=== PATIENT | female | born 1970 | race Caucasian/White ===

== ENCOUNTER → 2016-11-09 | Outpatient (CLI) | payer OTHER ==
[~2016-11-09] VITALS: Ht 172.7 cm; Wt 59.9 kg
[~2016-11-09] MED LIST: BACL20TA PO; HYDR-3816 PO; IBUP-1773 PO; MEDR10TA9 PO; ONDA8TAB13 PO; PANT40TA2 PO; PARO10TA81 PO; SUCR1ORA5 PO; SULF1TAB35 PO
== END ==
LOC: PREOP 05:51
PROVIDERS: ATTEND Surgery Pediatric Surgery
DX: Z01.818 Encounter for other preprocedural examination (principal); R10.12 Left upper quadrant pain; R11.2 Nausea with vomiting, unspecified; R19.7 Diarrhea, unspecified; K92.1 Melena

== ENCOUNTER 2016-11-11 11:01 | Day surgery (SDC) | payer OTHER ==
[~2016-11-11] VITALS: Ht 172.7 cm; Wt 59.9 kg
[~2016-11-11 11:01] MED LIST changes: +NS IV 500 ML 500 ML ONE; -ONDA8TAB13 PO; -PANT40TA2 PO; -SUCR1ORA5 PO
[2016-11-11] MEDS ORDERED: NS IV 500 ML 500 ML IV PRN ×2 (11:30→11:45)
[2016-11-11] MEDS ORDERED: FLUMAZENIL (ROMAZICON) 0.1 MG/ML 5 ML VIAL INJ PRN ×2 (11:30→11:45)
[2016-11-11] MEDS ORDERED: MIDAZOLAM 2 MG/2 ML (VERSED) VIAL IVP PRN (11:30)
[2016-11-11] MEDS ORDERED: fentaNYL INJECTION 100 MCG/2 ML AMP IVP PRN (11:30)
[2016-11-11] MEDS ORDERED: NALOXONE 0.4 MG/ML 1 ML (NARCAN) VIAL IVP PRN ×2 (11:30→11:45)
[2016-11-11] MEDS ORDERED: HURRICAINE EXT TUBE (BENZOCAINE) XX PRN ×2 (11:30→11:45)
[2016-11-11 11:34] VITALS: BP 132/86
--- NOTE | 2016-11-11 11:41 | Conscious Sedation/ASA ---
Conscious Sedation Pre-Proced Time Reviewed: 11:15 ASA Class: 2 Airway Mallampati Classification: (king salmon appropriate class) I. II. III, IV Lungs Heart ASA score ASA 1: a normal healthy patient ASA 2: a patient with a mild systemic disease (mid diabetes, controlled hypertension, obesity ASA 3: a patient with a severe systemic disease that limits activity (angina , COPD, prior Myocardial infarction) ASA 4: a patient with an incapacitating disease that is a constant threat to life (CHF, renal failure) ASA 5: a moribund patient not expected to survive 24 hrs. (ruptured aneurysm) ASA 6: a declared brain patient whose organs are being harvested. For emergent operations, add the letter E after the classification Grade 2 Sedation Plan: Analgesia, Amnesia, Plan communicated to team members, Discussed options with patient/fam, Discussed risks with patient/fam Note The patient is an appropriate candidate to undergo the planned procedure, sedation, and anesthesia. The patient immediately re-assessed prior to indication. RAFAEL MARSH MD Nov 11, 2016 11:41 am
--- NOTE | 2016-11-11 11:42 | Progress Note-Pre Operative ---
Pre-Operative Progress Note H&P Reviewed The H&P was reviewed, patient examined and no changes noted. Date H&P Reviewed: Nov 11, 2016 Time H&P Reviewed: 11:15 Pre-Operative Diagnosis: abdominal pain, rectal bleed RAFAEL MARSH MD Nov 11, 2016 11:42 am
[2016-11-11] MEDS ORDERED: ONDANSETRON 4 MG/2 ML (SDV) Z0FRAN IV PRN (11:45)
[2016-11-11] MEDS ORDERED: morphine INJ 10 MG/ML 1ML (SYR OR VIAL) IV PRN (11:45)
[2016-11-11] MEDS ORDERED: HYDROcodone/APAP 5 MG/325 MG (LORTAB) TAB PO PRN (11:45)
[2016-11-11] MEDS ORDERED: LIDOCAINE JELLY 2% (XYLOCAINE) 5 ML TUBE ONE (12:48)
[2016-11-11] MEDS ORDERED: fentaNYL INJECTION 100 MCG/2 ML AMP ONE ×2 (12:48)
[2016-11-11] MEDS ORDERED: MIDAZOLAM 2 MG/2 ML (VERSED) VIAL ONE ×6 (12:48→13:46)
[2016-11-11] MEDS ORDERED: HURRICAINE EXT TUBE (BENZOCAINE) ONE (12:49)
[2016-11-11] MEDS ORDERED: NS IV 500 ML 500 ML ONE (13:18)
[2016-11-11] MEDS: fentaNYL INJECTION 100 MCG/2 ML AMP IVP PRN ×4 (13:21→13:49)
[2016-11-11] MEDS: MIDAZOLAM 2 MG/2 ML (VERSED) VIAL IVP PRN ×6 (13:22→13:53)
--- NOTE | 2016-11-11 14:12 | Progress Note-Post Operative ---
Post-Operative Progess Note Pre-Operative Diagnosis abdominal pain, rectal bleed Post-Operative Diagnosis reflux esophagitis(class B), small HH(2cm), mild-moderate gastritis. chronic stage 2 ext and int hemorrhoids, HP polyp proximal transverse colon. Post-Op Procedure Note Date of Procedure: Nov 11, 2016 Name of Procedure: EGD with bx. Colonoscopy with bx. Anesthesia Type CS Estimated blood loss (mL): minimal Specimen(s) collected GE jxn, antrum, transverse colon polyp RAFAEL MARSH MD Nov 11, 2016 2:12 pm
[2016-11-11] MEDS ORDERED: PANT40TA2 PO ×2 (14:13)
--- NOTE | 2016-11-11 14:14 | Discharge Inst-Surgical ---
D/C Lap Instructions-KIDO New, Converted, or Re-Newed RX: RX on Chart Follow Up 5 years Activity as tolerated High Fiber Diet 25g or more per day Avoid Alcohol, Caffeine, Spicy [place] and Acid foods. Drink 64 fluid oz or more of fluids per day. Symptoms to Report: Fever over 101 degree F, Nausea/Vomiting If any problems/questions: Contact your physician or go to Emergency Room RAFAEL MARSH MD Nov 11, 2016 2:14 pm
[2016-11-11 14:30] VITALS: BP 102/58
[2016-11-11] MEDS ORDERED: LIDOCAINE JELLY 2% (XYLOCAINE) 5 ML TUBE TOP ONE (14:30)
[2016-11-11 14:55] VITALS: BP 110/65
[2016-11-11 15:00] VITALS: BP 110/65
[2016-11-11] MEDS ORDERED: ONDA8TAB13 PO (19:51)
[2016-11-11] MEDS ORDERED: SUCR1ORA5 PO (19:51)
--- NOTE | 2016-11-12 13:10 | OPERATIVE REPORT ---
PROCEDURE PHYSICIAN: RAFAEL OKEEFE DATE OF PROCEDURE: 11/11/2016 ATTENDING PRIMARY CARE PHYSICIAN: Dr. Elizabeth Marx. PREOPERATIVE DIAGNOSIS: Epigastric pain with random episodes of nausea and vomiting and diarrhea. POSTOPERATIVE DIAGNOSES: 1. Chronic class B reflux esophagitis. 2. Small hiatal hernia, approximately 2 cm in size. 3. Mild to moderate gastritis. 4. Chronic, stage II external and internal hemorrhoids. 5. Small hyperplastic polyp of the proximal transverse colon. PROCEDURE: 1. EGD with biopsy. 2. Colonoscopy with biopsy. SURGEON: Dr. Okeefe. ANESTHESIA: Conscious sedation. ESTIMATED BLOOD LOSS: Minimal. FINDINGS: EGD: 1. Reflux esophagitis, class B. 2. No ulcers or strictures. 3. Small to moderate size hiatal hernia, approximately 2 cm in size. 4. Mild to moderate severity gastritis. 5. The pylorus and duodenum appeared normal. COLONOSCOPY: 1. Chronic, stage II external and internal hemorrhoids, not actively edematous or inflamed and no bleeding. 2. Small hyperplastic polyp of the proximal transverse colon was identified. 3. The remainder colon was normal. DISPOSITION: The patient tolerated the procedure well. Ms. Kecia Suazo is a 46-year-old female who has had left upper quadrant abdominal pain with associated nausea, vomiting and diarrhea. She reports that this has been going on for approximately one year on an intermittent basis. She describes the pain as a stabbing sensation and she will also have her random episodes of nausea and vomiting which is followed by diarrhea. She reports that it does not matter what she eats. She reports that she has had issues with constipation before in the past as well as alternating episodes of diarrhea which may indicate some level of irritable bowel syndrome. She also reports small amounts of self-limited blood in her stools as well. She did have a gallbladder ultrasound, which did not show any gallstones. She does have a history of smoking, however quit regular cigarettes and uses a vapor nicotine right now. She does drink several cups of coffee throughout the day. She also believes that her paternal grandmother did have colon cancer. PROCEDURE: The patient was brought to the endoscopy suite, laid in left lateral decubitus position. After adequate IV pain and sedative medications and conscious sedation anesthesia, the mouthpiece was applied. The endoscope was placed in the mouth, visualizing the pharynx and hypopharyngeal region. Vocal cords, epiglottis and vallecula identified and appeared to be normal. The endoscope was then gently intubated the esophageal opening and the esophagus insufflated. The endoscope was then advanced through the first, second, and 3rd portions of the esophagus. At the level GE junction, a reflux esophagitis, class B identified. There were no ulcers or strictures identified in this region. A biopsy was taken with forceps with visualization of good hemostasis. The endoscope was then easily advanced into stomach and endoscope retroflexed visualizing a small to moderate sized hiatal hernia, approximately 2 cm in size. There was a mild to moderate severity gastritis. There were no ulcers, polyps or any other neoplasms identified. A biopsy was taken of the antrum with forceps with visualization of good hemostasis. The endoscope was then advanced through the pylorus and first and second portions of duodenum which appeared normal. The endoscope was then slowly withdrawn while taking a second look and suctioning of residual air with no additional findings. The patient tolerated this portion the procedure well. For her reflux esophagitis, hiatal hernia and gastritis, we will start her on Protonix 40 mg daily. She is also instructed to proceed the necessary lifestyle and diet accommodation including smoking cessation as well as avoidance of caffeinated beverages, spicy, greasy and acidic foods, as well as smaller, more frequent meals and avoidance of eating at night. If she has recurrent symptoms of nausea and vomiting as well as pain, we will then proceed with a HIDA scan of the gallbladder for the possibility of chronic acalculous cholecystitis. COLONOSCOPY: Under the same conscious sedation anesthesia, we then proceeded with the colonoscopy portion the procedure. A digital rectal examination was performed, which revealed mild chronic, stage II external and internal hemorrhoids which were not actively edematous or inflamed and no bleeding. Normal sphincter tone was felt and there were no palpable masses. The endoscope was then intubated into the anus and the rectum gently insufflated. The endoscope was then advanced into valves Flores the rectum with no polyps or any neoplasms identified. The endoscope was then advanced through the sigmoid colon where no diverticulosis identified. We then proceeded through the descending colon to the proximal transverse colon where a small hyperplastic polyp, approximately 1 to 2 mm in size was identified. This was biopsied and destroyed using forceps and electrocautery with visualization of good hemostasis. The endoscope was then advanced through the remainder of the transverse colon, as well as through ascending colon to the cecum. These segments were normal. The endoscope was slowly withdrawn while taking a second look and suctioning of residual air with no additional findings. The patient tolerated this portion the procedure well. Due to the finding of a benign polyp we will recommend a follow-up colonoscopy in 5 years. Will also instruct her to proceed with a high fiber diet with at least 25 to 30 grams of fiber per day, as well as at least 64 fluid ounces of water daily to promote soft stools on a daily basis. Job ID: [id number] Dictated Date: 11/11/2016 14:20:41 Tobacco Dipper Date: 11/12/2016 12:59:57 / emely MULLIGAN
== END 2016-11-11 15:00 | disposition home or self-care (01) ==
LOC: SDC 11:01
PROVIDERS: ATTEND Surgery Pediatric Surgery
DX: K21.0 Gastro-esophageal reflux disease with esophagitis (principal); K63.5 Polyp of colon; K44.9 Diaphragmatic hernia without obstruction or gangrene; K29.70 Gastritis, unspecified, without bleeding; K64.1 Second degree hemorrhoids

== ENCOUNTER 2016-11-11 16:40 | Emergency (ER) | payer OTHER ==
[~2016-11-11] VITALS: Ht 172.7 cm; Wt 61.2 kg
[~2016-11-11 16:40] MED LIST changes: -NS IV 500 ML 500 ML ONE; +PANT40TA2 PO
--- OUTSIDE RECORDS SUMMARY | 2016-11-11 16:44 | XMS REPORT | Continuity of Care Document ---
Author Author [facility] [address] Organization [facility] [address] Address Unknown Phone Unavailable Care Team Providers Care Java Lead Engineer Name Role Phone JEROD CEBALLOS MD PCP Insurance Providers Payer Name Policy Number Subscriber Name Relationship [facility] [id number] [place] [address] Self / Same As Patient Advance Directives Directive Response Recorded Date/Time Advance Directives No 11/11/16 11:32am Health Care Power of Car Distributor No 11/11/16 11:32am Organ Donor Yes 11/11/16 11:32am Resuscitation Status Full Code 11/11/16 11:32am Problems Active Problems Medical Problem Onset Date Status Laceration of ankle, right Unknown Acute Medications Current Home Medications Medication Dose Units Route Directions Days/Qty Instructions Start Date Paroxetine Hcl 10 Mg 10 Mg Oral Daily 06/23/16 Pantoprazole Sodium 40 Mg 40 Mg Oral Daily 90 11/11/16 Past Home Medications Medication Directions Ordered Status Medroxyprogesterone Acetate 10 Mg Tablet, 10 Mg Oral Daily 08/27/15 Discontinued Baclofen 20 Mg Tablet, 20 Mg Oral Three Times A Day as needed for Muscle Spasms 08/27/15 Discontinued Ibuprofen 600 Mg Tablet, 600 Mg Oral Every 6 Hours 09/04/15 Discontinued Hydrocodone/Acetaminophen 1 Each Tablet, 1-2 Ea Oral Every 6 Hours as needed for Pain 09/04/15 Discontinued Sulfamethoxazole/Trimethoprim 1 Each Tablet, 1 Each Oral Twice Daily And Prn 06/23/16 Discontinued Social History Social History Problem Response Recorded Date/Time Alcohol Use Rarely Uses 09/03/2015 7:20am Recreational Drug Use No 09/03/2015 7:20am Recent Foreign Travel No 11/11/2016 11:33am Recent Infectious Disease Exposure No 11/11/2016 11:33am Sexually Transmitted Disease No 11/11/2016 11:32am HIV/AIDS No 11/11/2016 11:32am Smoking Status Former Smoker 11/11/2016 11:32am Do you dip or chew tobacco? No 09/03/2015 7:21am Type Used Electronic/Vapor 11/11/2016 3:09pm Recent Hopitalizations No 11/11/2016 11:32am Sexually Transmitted Disease No 11/11/2016 11:32am Query Response Start Date Stop Date Smoking Status Former Smoker Hospital Discharge Instructions Patient Instructions Physician Instructions New, Converted, or Re-Newed RX: RX on Chart Follow Up 5 years Activity as tolerated High Fiber Diet 25g or more per day Avoid Alcohol, Caffeine, Spicy [place] and Acid foods. Drink 64 fluid oz or more of fluids per day. Symptoms to Report: Fever over 101 degree F, Nausea/Vomiting If any problems/questions: Contact your physician or go to Emergency Room Plan of Care Discharge Date 11/11/16 3:00pm Instructions/Education Provided COLONOSCOPY EGD-ESOPHAGOGASTRODUODENOSCOPY High Fiber Diet Prescriptions See Medication Section Functional Status No functional status results. Allergies, Adverse Reactions, Alerts Allergen Type Severity Reaction Status Last Updated Penicillins ([id number]) Allergy Unknown RASH Active 08/27/15 Oxycodone Adverse Reaction Mild NAUSEA Active 09/03/15 Acetaminophen Adverse Reaction Mild NAUSEA Active 09/03/15 Immunizations No immunization records. Vital Signs Acute Vital Signs Vital Response Date/Time Temperature (Fahrenheit) 97.3 degrees F (97.6 - 99.5) 11/11/2016 3:00pm Temperature (Calculated Celsius) 36.54260 degrees C (36.4 - 37.5) 11/11/2016 3:00pm Temperature Source Tympanic 11/11/2016 3:00pm Pulse Rate (adult) 69 bpm (60 - 90) 11/11/2016 3:00pm Respiratory Rate 16 bpm (12 - 24) 11/11/2016 3:00pm O2 Sat by Pulse Oximetry 100 % (88 - 100) 11/11/2016 3:00pm Blood Pressure 110/65 mm Hg 11/11/2016 3:00pm Blood Pressure Mean 101 mm Hg 11/11/2016 11:34am Pain Numeric Pain Scale 0-No Pain 11/11/2016 3:00pm Pain Intensity 0 11/11/2016 2:55pm Height (Feet) 5 feet 11/11/2016 11:33am Height (Inches) 8.00 inches 11/11/2016 11:33am Height (Calculated Centimeters) 172.400115 cm 11/11/2016 11:33am Weight (Pounds) 132 pounds 11/11/2016 11:33am Weight (Ounces) 0.0 oz 11/11/2016 11:33am Weight (Calculated Grams) 17134.19 gm 11/11/2016 11:33am Weight (Calculated Kilograms) 59.831180 kilograms 11/11/2016 11:33am Calculated BMI 20.1 11/11/2016 11:33am Results No known relevant diagnostic tests, laboratory data and/or discharge summary. Procedures Procedure Status Date Provider(s) Esophagogastroduodenoscopy (EGD) with dilation Completed 11/11/16 RAFAEL MARSH MD Encounters Encounter Location Arrival/Admit Date Discharge/Depart Date Attending Provider Departed [facility] Day [facility] [address] 11/11/16 11:01am 11/11/16 3:00pm RAFAEL MARSH MD Registered Clinic [facility] [address] 11/09/16 5:51am RAFAEL MARSH MD
--- NOTE | 2016-11-11 17:52 | ED Abdominal Pain ---
General Chief Complaint: Abdominal/GI Problems Stated Complaint: ABD PAIN Nursing Triage Note: pt had egd/colonoscopy today et was dc'd at about 1400. She then ate a cheeseburger et ice cream et began having severe abd pain. vomiting x 1. Sepsis Screen: No Definite Risk Source of Information: Patient, Family Exam Limitations: No Limitations History of Present Illness Time Seen By Provider: 17:52 Initial Comments 46 yo female patient presents to the ED with c/o abdominal pain/cramping, bloating and n/v this evening. Patient underwent EGD/Colonoscopy by Dr. Okeefe and was dsch to home at 1400. Patient states she then went to eat a cheeseburger and ice cream. Soon after patient began having severe pain. Timing/Duration: 1-3 Hours Severity/Quality: Severe, Cramping Location: Generalized Abdomen Radiation: No Radiation Activities at Onset: Other (after eating) Modifying Factors: Worsens With Eating Allergies and Home Medications Allergies Coded Allergies: Penicillins (Verified Allergy, Unknown, RASH, 08/27/15) acetaminophen (Verified Adverse Reaction, Mild, NAUSEA, 09/03/15) oxycodone (Verified Adverse Reaction, Mild, NAUSEA, 09/03/15) Home Medications Ondansetron 8 Mg Tab.rapdis #10 8 MG PO Q6H PRN PRN NAUSEA/VOMITING Prescribed by: JORGE BARBOSA on 11/11/161950 Pantoprazole Sodium 40 Mg Tablet.dr #90 40 MG PO DAILY Prescribed by: RAFAEL OKEEFE on 11/11/16 141 Paroxetine HCl 10 Mg Tablet 10 MG PO DAILY (Reported) Sucralfate 1 Gm/10 Ml Oral.susp #560 1 GM PO ACHS Prescribed by: JORGE BARBOSA on 11/11/161950 Review of Systems Constitutional: No chills, No diaphoresis, No dizziness, No fever, No malaise EENTM: No Symptoms Reported Respiratory: Denies Cough, Denies Shortness of Air Cardiovascular: Denies Chest Pain, Denies Lightheadedness, Denies Palpitations , Denies Syncope Gastrointestinal: See HPI Abdomen Distended Abdominal PainDenies Blood Streaked Stools, Denies Diarrhea, NauseaDenies Rectal Bleeding, Vomiting Genitourinary: No Symptoms Reported Musculoskeletal: no symptoms reported Skin: no symptoms reported Psychiatric/Neurological: No Symptoms Reported All Other Systems Reviewed Negative Unless Noted: Yes (Negative excepted noted.) Past Ufnfiox-Yojnzl-Ipakav Hx Patient Social History Type Used: Electronic/Vapor Recent Foreign Travel: No Contact w/Someone Who Travel: No Recent Infectious Disease Expo: No Recent Hopitalizations: No Immunizations Up To Date Tetanus Booster (TDap): Unknown Date of Influenza Vaccine: Jun 25, 2015 Seasonal Allergies Seasonal Allergies: Yes (MILD) Surgeries HX Surgeries: Yes (LUMBAR MICRODISCECTOMY) Surgeries: Hysterectomy, Tonsillectomy Respiratory Hx Respiratory Disorders: No Cardiovascular Hx Cardiac Disorders: No Neurological Hx Neurological Disorders: No Reproductive System Hx Reproductive Disorders: No Sexually Transmitted Disease: No HIV/AIDS: No DIRECTOR SPECIALTY History: Hysterectomy Genitourinary Hx Genitourinary Disorders: No Gastrointestinal Hx Gastrointestinal Disorders: Yes (ABDOMINAL PAIN, N/V, BLOOD IN STOOLS) Gastrointestinal Disorders: Chronic Constipation, Chronic Diarrhea Musculoskeletal Hx Musculoskeletal Disorders: Yes (BULGING DISC) Musculoskeletal Disorders: Degenerate Disk Disease, Arthritis, Back Injury, Chronic Back Pain Endocrine Hx Endocrine Disorders: No HEENT HX ENT Disorders: Yes (GLASSES) Loss of Vision: Bilateral Hearing Impairment: Denies Cancer Hx Cancer: No Psychosocial Hx Psychiatric Problems: Yes Behavioral Health Disorders: Anxiety Integumentary HX Skin/Integumentary Disorder: No Blood Transfusions Hx Blood Disorders: No Adverse Reaction to a Blood Tr: No (N/A) Reviewed Nursing Assessment Reviewed/Agree w Nursing PMH: Yes Family Medical History Significant Family History: No Pertinent Family Hx Family Medial History: Cataracts 19 MOTHER Diabetes mellitus 19 MOTHER Drug abuse G8 SISTER Physical Exam Vital Signs Capillary Refill : Less Than 3 Seconds General Appearance: WD/WN no apparent distress Neck: supple normal inspection Respiratory: lungs clear normal breath sounds no respiratory distress Cardiovascular: normal peripheral pulses regular rate, rhythm no murmur Peripheral Pulses: 2+ Dorsalis Pedis (R), 2+ Left Dors-Pedis (L), 2+ Radial Pulses (R), 2+ Radial Pulses (L) Gastrointestinal: soft abnormal bowel sounds distended guardingNo rebound, tenderness (generalized ttp) Extremities: no pedal edema normal capillary refill Back: normal inspection no CVA tenderness Neurologic/Psychiatric: alert normal mood/affect oriented x 3 Skin: normal color warm/dry Laceration Repair : Suture Size: 4-0 Progress/Results/Core Measures Results/Orders Lab Results Laboratory Tests Test 11/11/16 17:55 11/11/16 20:02 Range/Units Alanine Aminotransferase (ALT/SGPT) 13 0-55 U/L Albumin 4.2 3.2-4.5 G/DL Alkaline Phosphatase 51 40-136 U/L Anion Gap 7 5-14 MMOL/L Aspartate Amino Transf (AST/SGOT) 18 5-34 U/L BUN/Creatinine Ratio 13 Basophils # (Auto) 0.0 0.0-0.1 10^3/uL Basophils (%) (Auto) 0 0-10 % Blood Urea Nitrogen 12 7-18 MG/DL Calcium Level 9.2 8.5-10.1 MG/DL Carbon Dioxide Level 26 21-32 MMOL/L Chloride Level 109 H 98-107 MMOL/L Creatinine 0.96 0.60-1.30 MG/DL Eosinophils # (Auto) 0.1 0.0-0.3 10^3/uL Eosinophils (%) (Auto) 1 0-10 % Estimat Glomerular Filtration Rate > 60 Glucose Level 114 H 70-105 MG/DL Hematocrit 38 35-52 % Hemoglobin 13.0 11.5-16.0 G/DL Lipase 36 8-78 U/L Lymphocytes # (Auto) 2.0 1.0-4.0 X 10^3 Lymphocytes (%) (Auto) 25 12-44 % Mean Corpuscular Hemoglobin 26 25-34 PG Mean Corpuscular Hemoglobin Concent 34 32-36 G/DL Mean Corpuscular Volume 75 L 80-99 FL Mean Platelet Volume 10.0 7.4-10.4 FL Monocytes # (Auto) 0.6 0.0-1.0 X 10^3 Monocytes (%) (Auto) 8 0-12 % Neutrophils # (Auto) 5.3 1.8-7.8 X 10^3 Neutrophils (%) (Auto) 66 42-75 % Platelet Count 249 130-400 10^3/uL Potassium Level 4.1 3.6-5.0 MMOL/L Red Blood Count 5.10 4.35-5.85 10^6/uL Red Cell Distribution Width 14.7 H 10.0-14.5 % Sodium Level 142 135-145 MMOL/L Total Bilirubin 0.7 0.1-1.0 MG/DL Total Protein 6.6 6.4-8.2 G/DL White Blood Count 8.0 4.3-11.0 10^3/uL Urine Amorphous Sediment FEW DANA URATES H /LPF Urine Bacteria NONE /HPF Urine Bilirubin NEGATIVE NEGATIVE Urine Casts NONE /LPF Urine Clarity SLIGHTLY CLOUDY Urine Color YELLOW Urine Crystals PRESENT H /LPF Urine Culture Indicated NO Urine Glucose (UA) NEGATIVE NEGATIVE Urine Ketones 1+ H NEGATIVE Urine Leukocyte Esterase NEGATIVE NEGATIVE Urine Mucus MODERATE H /LPF Urine Nitrite NEGATIVE NEGATIVE Urine Protein 1+ H NEGATIVE Urine RBC NONE /HPF Urine RBC (Auto) NEGATIVE NEGATIVE Urine Specific [place] 1.030 H 1.016-1.022 Urine Squamous Epithelial Cells 2-5 /HPF Urine Urobilinogen NORMAL NORMAL MG/DL Urine WBC NONE /HPF Urine pH 5 5-9 My Orders Orders-JORGE BARBOSA Cbc With Automated Diff (11/11/16 18:09) Comprehensive Metabolic Panel (11/11/16 18:09) Lipase (11/11/16 18:09) Saline Lock/Iv-Start (11/11/16 18:09) Ns Iv 1000 Ml (Sodium Chloride 0.9%) (11/11/16 18:09) Ondansetron Injection (Zofran Injectio (11/11/16 18:15) Famotidine Injection (Pepcid Injection) (11/11/16 18:09) Ketorolac Injection (Toradol Injection) (11/11/16 18:09) Diazepam Injection (Valium Injection) (11/11/16 18:15) Acute Abd Series (11/11/16 18:13) Ua Culture If Indicated (11/11/16 20:07) Iv Push Staff Writer Ed (11/11/16 ) Medications Given in ED Vital Signs/I&O Blood Pressure Mean: 95 Diagnostic Imaging Diagonstic Imaging: Xray Plain Films/CT/US/NM/MRI: abdomen Comments INDICATION: Colonoscopy today. Complains of abdominal pain. FINDINGS: The lungs are well aerated and clear. No free air is seen under the diaphragm. Stomach is filled with food. Colon is gaseously distended. There is air-fluid level in the cecum. No intramural air is demonstrated. IMPRESSION: 1. Gaseously distended colon with air-fluid level in the cecum. No intramural air or free air demonstrated. 2. Stomach is distended with food. Dictated on workstation # [id number] Reviewed: Reviewed by Me (radiology report reviewed by me. ) Departure Communication Progress Notes laboratory and diagnostic findings discussed with the patient and spouse. Patient reports feeling better with fluids and medications. No further vomiting in the emergency department. Proceed with discharge to home. All return precautions were discussed with the patient as described in the discharge instructions of this report. Patient voices understanding and agrees with the treatment plan. Patient case discussed with Dr. Hendricks, he agrees with the plan of care. Impression Impression: Primary Impression: Post procedure discomfort Additional Impressions: Vomiting Gastritis Reflux esophagitis Disposition: HOME, SELF-CARE Condition: Improved Departure-Patient Inst. Decision time for Depature: 20:00 Referrals: RAFAEL OKEEFE MD, LISA A MD (PCP/Family) Primary Care Physician Patient Instructions: Gas and Bloating, Gastritis (DC), Ulcer and Gastritis Diet Add. Discharge Instructions: All discharge instructions reviewed with patient and/or family. Voiced understanding. Medications as instructed. Continue medications as prescribed by Dr. Okeefe and Dr. Marx. Chewable gas-x or beano as directed for gas and bloating. Drink plenty of fluids. No spicy foods, fatty foods, carbonated beverages, caffeinated beverages, alcohol, smoking, secondhand smoke, ibuprofen , Aleve, or aspirin. Do not eat within 2 hours of lying down. Tylenol over-the -counter as needed for pain. Follow-up with your family practitioner and Dr. Okeefe for recheck as previously scheduled. Return to the emergency department immediately for worsened pain, fever, vomiting, vomiting blood, rectal bleeding , abdominal swelling, black stools, inability to urinate, painful urination, or any other concerns. Scripts Sucralfate (Carafate)1 Gm/10 Ml Oral.susp1 Gm PO ACHS #560 ML Ref 0 Prov:JORGE BARBOSA 11/11/16 Ondansetron (Ondansetron Odt)8 Mg Tab.rapdis8 Mg PO Q6H PRN NAUSEA/VOMITING #10 TAB Ref 0 Prov:JORGE BARBOSA 11/11/16 Work/School Note: Work Release Form Date Seen in the Emergency Department: Nov 11, 2016 Return to Work: Nov 13, 2016 Restrictions: No Restrictions JORGE BARBOSA Nov 11, 2016 17:52
[2016-11-11] MEDS ORDERED: KETOROLAC 30 MG/ML VIAL IVP STA (18:09)
[2016-11-11] MEDS ORDERED: FAMOTIDINE 20MG/2ML IV (PEPCID) IV STA (18:09)
[2016-11-11] MEDS ORDERED: NS IV 1000 ML 1,000 ML IV ONE (18:09)
[2016-11-11] MEDS ORDERED: ONDANSETRON 4 MG/2 ML (SDV) Z0FRAN IVP ONE (18:15)
[2016-11-11] MEDS ORDERED: DIAZEPAM INJ 10 MG/2 ML (VALIUM) SYR IV ONE (18:15)
[2016-11-11 18:16] LABS: BASOPHILS % (AUTO) 0 % (0-10); EOSINOPHILS # (AUTO) 0.1 10^3/uL (0.0-0.3); EOSINOPHILS % (AUTO) 1 % (0-10); LYMPHOCYTES % (AUTO) 25 % (12-44); MEAN CORPUSCULAR HEMOGLOBIN 26 PG (25-34); MEAN CORPUSCULAR HGB CONC 34 G/DL (32-36); MEAN CORPUSCULAR VOLUME 75 FL (80-99); MONOCYTES # (AUTO) 0.6 X 10^3 (0.0-1.0); MONOCYTES % (AUTO) 8 % (0-12); NEUTROPHILS # (AUTO) 5.3 X 10^3 (1.8-7.8); NEUTROPHILS % (AUTO) 66 % (42-75); PLATELET COUNT 249 10^3/uL (130-400); RED CELL DISTRIBUTION WIDTH 14.7 % (10.0-14.5)
[2016-11-11 18:35] LABS: ALANINE AMINOTRANSFERASE 13 U/L (0-55); ALBUMIN 4.2 G/DL (3.2-4.5); ANION GAP 7 MMOL/L (5-14); ASPARTATE AMINO TRANSFERASE 18 U/L (5-34); BILIRUBIN,TOTAL 0.7 MG/DL (0.1-1.0); BLOOD UREA NITROGEN 12 MG/DL (7-18); BUN/CREATININE RATIO 13; CALCIUM 9.2 MG/DL (8.5-10.1); CARBON DIOXIDE 26 MMOL/L (21-32); CHLORIDE 109 MMOL/L (98-107); CREATININE SERUM 0.96 MG/DL (0.60-1.30); GFR ESTIMATED > 60; GLUCOSE 114 MG/DL (70-105); LIPASE 36 U/L (8-78); POTASSIUM 4.1 MMOL/L (3.6-5.0); SODIUM 142 MMOL/L (135-145); TOTAL PROTEIN 6.6 G/DL (6.4-8.2)
--- NOTE | 2016-11-11 19:05 | Diagnostic Imaging Report ---
INDICATION: Colonoscopy today. Complains of abdominal pain. FINDINGS: The lungs are well aerated and clear. No free air is seen under the diaphragm. Stomach is filled with food. Colon is gaseously distended. There is air-fluid level in the cecum. No intramural air is demonstrated. IMPRESSION: 1. Gaseously distended colon with air-fluid level in the cecum. No intramural air or free air demonstrated. 2. Stomach is distended with food. Dictated by: Dictated on workstation # [id number]
[2016-11-11] MEDS ORDERED: ONDA8TAB13 PO (19:51)
[2016-11-11] MEDS ORDERED: SUCR1ORA5 PO (19:51)
[2016-11-11 20:12] LABS: BILIRUBIN,URINE NEGATIVE (NEGATIVE); KETONES,URINE 1+ (NEGATIVE); LEUKOCYTE ESTERASE ,URINE NEGATIVE (NEGATIVE); NITRITE,URINE NEGATIVE (NEGATIVE); PH,URINE 5 (5-9); PROTEIN,URINE 1+ (NEGATIVE); UROBILINOGEN,URINE NORMAL (NORMAL)
[2016-11-11 20:30] VITALS: BP 97/63
== END 2016-11-11 20:30 | disposition home or self-care (01) ==
LOC: EDUNIT# 16:40 → ER 16:41
DX: G89.18 Other acute postprocedural pain (principal); K29.70 Gastritis, unspecified, without bleeding; K21.9 Gastro-esophageal reflux disease without esophagitis; R11.10 Vomiting, unspecified
CPT/HCPCS: 36415; 74022; 80053; 81000; 83690; 85025; 96361; 96374; 96375